=== PATIENT | female | born 2000 | race Caucasian/White ===

== ENCOUNTER 2021-05-28 20:47 | Emergency (ER) | payer BC ==
[~2021-05-28] VITALS: Ht 162.6 cm; Wt 50.9 kg
--- NOTE | 2021-05-28 21:26 | PHYS DOC ---
Adult General HPI HPI Patient is a 20-year-old female who presents to the emergency department with a chief complaint of suicidal ideation for the past few weeks. Patient states she has been drinking vodka and jeremy sorenson reports having approximately 5-6 shots. States she called her friend and told her she was feeling like killing herself, patient's friend brought her to the emergency department for evaluation. Patient reports she will kill herself by slitting her throat with a knife. Patient states she is had suicidal thoughts for many years. Reports a suicide attempt when she was a sophomore in high school by taking a bottle of Midol and other pills that were in her home. Patient reports she was sent to the emergency department and they sent her back home with her parents, patient followed up with a psychiatrist who started her on sertraline and an unknown antipsychotic. Patient reports she stopped sometime ago, then followed up with psychiatry approximately 3 months [address] Marty Mahmood in [facility], was then started back on sertraline and another unknown antipsychotic. Patient reports she only took it for a week and stopped, has not let anybody know that she is only taking sertraline. Patient reports using marijuana, does not smoke cigarettes. Patient reports her last menstrual cycle was sometime ago, states she had her IUD removed 3 days ago at a medical facility in [facility]. Patient reports receiving the COVID-19 vaccination series. Patient denies homicidal ideation. Patient denies other physical complaints or physical concerns. (BRETT RAMIREZ APRN) Review of Systems Review of Systems 14 body systems of review of systems have been reviewed. See HPI for pertinent positives and negative responses, otherwise all other systems are negative, nonpertinent or noncontributory. Constitutional: Negative except as outlined in HPI above. Skin: Negative except as outlined in HPI above. Eyes: Negative except as outlined in HPI above. HENT: Negative except as outlined in HPI above. Respiratory: Negative except as outlined in HPI above. Cardiovascular: Negative except as outlined in HPI above. GI: Negative except as outlined in HPI above. : Negative except as outlined in HPI above. Musculoskeletal: Negative except as outlined in HPI above. Integument: Negative except as outlined in HPI above. Neurologic: Negative except as outlined in HPI above. Endocrine: Negative except as outlined in HPI above. Lymphatic: Negative except as outlined in HPI above. Psychiatric: Negative except as outlined in HPI above. (BRETT RAMIREZ APRN) Physical Exam Physical Exam Constitutional: Well developed, well nourished, no acute distress, non-toxic appearance. 20-year-old female intermittently tearful during exam otherwise in no apparent distress. HENT: Normocephalic, atraumatic. Eyes: Conjunctiva normal, no discharge. Neck: Normal range of motion, no stridor. Cardiovascular: No cyanosis appreciated, distal cap refill less than 2 seconds. Lungs & Thorax: Patient is in no respiratory distress, no audible adventitious lung sounds appreciated. Abdomen: Nontender, no abnormalities noted. Skin: Warm, dry, no erythema, no rash. Back: No tenderness, no deformities. Extremities: No tenderness, no cyanosis, no clubbing, ROM intact, no edema. Neurologic: Alert and oriented X 3, normal motor function, normal sensory function, no focal deficits noted. Psychologic: Affect normal, judgement abnormal, mood normal. Patient is not homicidal, does admit to having suicidal feelings with plan to cut her carotid with a knife. (BRETT RAMIREZ APRN) Current Patient Data Lab Results Laboratory Tests Test 05/28/21 21:14 POC Urine HCG, Qualitative hcg negative (Negative) (BRETT RAMIREZ APRN) EKG EKG [] (BRETT RAMIREZ APRN) Radiology/Procedures Radiology/Procedures [] (BRETT RAMIREZ APRN) Heart Score C/O Chest Pain: No Risk Factors: Risk Factors: DM, Current or recent (<one month) smoker, HTN, HLP, family history of CAD, obesity. Risk Scores: Risk Factors: DM, Current or recent (<one month) smoker, HTN, HLP, family history of CAD, obesity. (BRETT RAMIREZ APRN) Course & Med Decision Making Course & Med Decision Making Pertinent Labs and Imaging studies reviewed. (See chart for details) 20-year-old female, vital signs reviewed, presents to the emergency department concerning suicidal ideation. Physical examination none concerning for physical abnormalities, patient denies homicidal ideation, patient does admit to feeling suicidal and has plan. Will order one-to-one constant observation, suicide precautions, PAT steam fitter supervisor maintenance consult, CBC, CMP, urinalysis assay, urine test, urine drug screen, rapid flu and COVID-19 testing with COVID-19 PCR testing. Discussed patient case and ED work-up with PAT steam fitter supervisor maintenance Harleen who agrees patient case warrants inpatient psychiatric admission pending medical clearance. States she will interview patient for placement once Covid PCR testing is completed. Patient CBC, CMP, urinalysis assay, urine test nonconcerning. Patient did report smoking marijuana on occasion, did not test positive on urinalysis drug screen, patient did have positive alcohol on urinalysis drug screening, serum alcohol equals 105. The patient is clinically sober, does not appear intoxicated. Discussed lab findings with patient, discussed PAT steam fitter supervisor maintenance evaluation pendi ng COVID-19 PCR testing, most likely will be tomorrow after 8 AM before test results. Discussed with patient will remain on one-to-one constant observation, patient is amendable to ED planning, continues to want help for suicidal ideation. Patient continues to be calm and cooperative. One-to-one constant observation in progress. Patient remains in no apparent distress and nontoxic in appearance. 01:00 end of shift report given to ED attending physician Dr. Sylvester who is assumed patient care at this time. (BRETT RAMIREZ APRN) Course & Med Decision Making Patient care handed off to me at checkout pending patient disposition. Per psychiatric assessment team liaison, all facilities have to have a Covid PCR now before admission. Patient to wait in the emergency department until PCR results. Rest of patient care handed off to day team for placement and PCR Covid. (TERE SYLVESTER MD) Dragon Disclaimer Dragon Disclaimer This electronic medical record was generated, in whole or in part, using a voice recognition dictation system. (BRETT RAMIREZ APRN) Departure Departure: Referrals: PCP,NO (PCP) BRETT RAMIREZ APRN May 28, 2021 21:26 TERE SYLVESTER MD May 29, 2021 05:25
[2021-05-28 21:40] LABS: BARBITURATES NEG (NEG); BENZODIAZEPINES NEG (NEG); CANNABINOIDS NEG (NEG); COCAINE NEG (NEG); METHADONE NEG (NEG); OPIATES NEG (NEG); PHENCYCLIDINE NEG (NEG)
[2021-05-28 21:41] LABS: AMPHETAMINE/METHAMPHETAMINE NEG (NEG)
[2021-05-28 21:46] LABS: BACTERIA,URINE 0 /HPF (0-FEW); CLARITY,URINE CLEAR; COLOR,URINE STRAW; GLUCOSE,URINE NEG (NEG); NITRITE,URINE NEG (NEG); RBC,URINE 0 /HPF (0-2); SQUAMOUS EPITHELIAL CELL,UR FEW /LPF; UROBILINOGEN,URINE 0.2 mg/dL (0.2 mg/dL)
[2021-05-28 21:47] LABS: BASO # 0.1 x10^3/uL (0.0-0.2); BASO % 1 % (0-3); EOS # 0.1 x10^3/uL (0.0-0.7); EOS % 2 % (0-3); HEMATOCRIT 41.7 % (36.0-47.0); HEMOGLOBIN 14.2 g/dL (12.0-15.5); LYMPH # 2.7 x10^3/uL (1.0-4.8); LYMPH % 33 % (24-48); MEAN CORPUSCULAR HEMOGLOBIN 30 pg (25-35); MEAN CORPUSCULAR HGB CONC 34 g/dL (31-37); MEAN CORPUSCULAR VOLUME 87 fL (79-100); MONO # 0.4 x10^3/uL (0.0-1.1); MONO % 5 % (0-9); NEUT % 60 % (31-73); PLATELET COUNT 278 x10^3/uL (140-400); RED BLOOD COUNT 4.79 x10^6/uL (3.50-5.40); RED CELL DISTRIBUTION WIDTH 12.7 % (11.5-14.5); WHITE BLOOD COUNT 8.3 x10^3/uL (4.0-11.0)
[2021-05-28 22:01] LABS: CREATININE 0.7 mg/dL (0.6-1.0); GFR 107.8; POTASSIUM 3.3 mmol/L (3.5-5.1)
[2021-05-28 22:06] LABS: ACETAMIN < 2 mcg/mL (10-30); ETHANOL 105 mg/dL (0-10); SALIC < 2.8 mg/dL (2.8-20.0)
[2021-05-28 22:07] LABS: ALBUMIN 4.5 g/dL (3.4-5.0); ALBUMIN/GLOBULIN RATIO 1.4 (1.0-1.7); TOTAL BILIRUBIN 0.2 mg/dL (0.2-1.0); TOTAL PROTEIN 7.8 g/dL (6.4-8.2)
[2021-05-28 22:33] LABS: INFLUENZA A PATIENT NEGATIVE (NEGATIVE); INFLUENZA B PATIENT NEGATIVE (NEGATIVE)
[2021-05-29] MEDS ORDERED: SERTRALINE 100 MG TABLET. PO ONE (12:00)
[2021-05-29 15:29] VITALS: BP 113/56
== END 2021-05-28 21:42 ==
LOC: ER 20:47
DX: R45.851 Suicidal ideations (principal); Z20.822 Contact with and (suspected) exposure to COVID-19
CPT/HCPCS: 80053; 80307; 80329; 81001; 81025; 85025; 87428; 99285; G0480; U0003